=== PATIENT | male | born 2000 | race Caucasian/White ===

== ENCOUNTER 2023-11-23 22:19 | Emergency (ER) | payer OTHER ==
[~2023-11-23] VITALS: Ht 177.8 cm; Wt 72.6 kg
[2023-11-23 22:34] VITALS: PULSE 82; RESP 16; TEMP 99.9; O2SAT 100
[2023-11-23] MEDS: CLINDAMYCIN HCL 150 MG CAP PO ONE (22:58)
[2023-11-23] MEDS ORDERED: CLINDAMYCIN HCL 150 MG CAP ONE (22:58)
[2023-11-23] MEDS ORDERED: CLEOCIN HCL150 MG PO (22:59)
== END 2023-11-23 23:02 | disposition home or self-care (01) ==
LOC: ER 22:24
DX: R22.0 Localized swelling, mass and lump, head (principal); K04.7 Periapical abscess without sinus; J45.909 Unspecified asthma, uncomplicated; F32.A Depression, unspecified; Z87.19 Personal history of other diseases of the digestive system; F17.210 Nicotine dependence, cigarettes, uncomplicated
CPT/HCPCS: 99282